=== PATIENT | female | born 1940 | race Caucasian/White ===

== ENCOUNTER 2019-11-27 21:51 | Observation (INO) | payer MEDICARE, SELFPAY ==
--- NOTE | ~2019-11-27 | CT_ITS ---
EXAMINATION: CT brain wo con DATE: 11/27/2019 23:21 INDICATION: Status post fall. Dementia. Headache. TECHNIQUE: Computed tomography (CT) of the head was performed without intravenous contrast. The dose- length product was 529.67 mGy-cm. COMPARISON: CT dated 11/15/2019 FINDINGS: Generalized atrophy. There is a right frontal scalp hematoma. There are scattered mild rory ventricular and subcortical white matter changes, most likely related to small vessel ischemic diseas e (microangiopathy). No acute intracranial hemorrhage, infarction, mass or mass effect. No depressed skull fractures. IMPRESSION: 1. No acute intracranial abnormality. 2: Chronic age-related findings. Reviewed, dictated and finalized at location A. T FURNACE AUXILIARIES SUPERVISOR
--- NOTE | ~2019-11-27 | CT_ITS ---
EXAMINATION: CT cervical spine wo con DATE: 11/27/2019 23:21 INDICATION: Status post fall. Neck pain. TECHNIQUE: Computed tomography (CT) of the cervical spine was performed without intravenous contrast. The dose-length product was 142 mGy-cm. Automated exposure control and iterative reconstruction tech nique were employed. COMPARISON: None FINDINGS: There is straightening of cervical lordosis. There is disc narrowing and endplate degenerat kaushik change at C4-5, C5-6 and C6-7. There is degenerative retrolisthesis at C4-5. Prominent dorsal ost eophytes at C4-5, C5-6 and C6-7. There is moderate multilevel uncinate and facet hypertrophy. Lung ap ices are normal. There is degenerative anterolisthesis at C7-T1. IMPRESSION: 1. No acute abnormality of the cervical spine. 2: Severe cervical spondylosis. Reviewed, dictated and finalized at location A. ETCHER
[2019-11-27 21:51] VITALS: BP 173/65; PULSE 80; RESP 14; TEMP 37.5; O2SAT 98
--- NOTE | 2019-11-27 21:52 | ED.FALL ---
HPI - Fall General Chief Complaint: Fall Stated Complaint: fall Time Seen by Provider: 11/27/19 21:52 Source: EMS Mode of arrival: EMS Limitations: dementia History of Present Illness HPI Narrative: The pt is a 78 y/o female who presents to the ED, via EMS from [facility], with c/o a fall that occurred today. Per EMS, staff contacted EMS after finding the pt on the floor around 20:40. The fall was not witnessed but the pt was alert and at her baseline mental status when found. Also per EMS, the pt was diagnosed with a UTI and a viral infection by her doctor this morning and has been weak because of it. The pt denies hip pain, back pain, and neck pain per EMS personnel. The pt has a PMHx of dementia. A complete HPI was limited due to the pt's dementia. MD complaint: fall Onset (ago): hour(s) (today) Fall witnessed: no Place fall occurred: other (assisted living facility) Loss of consciousness: unsure Associated symptoms (after fall): other (none) Related Data Allergies Allergy/AdvReac Type Severity Reaction Status Date / Time codeine Allergy Unknown Verified 11/27/19 22:32 Sulfa (Sulfonamide Allergy Unknown Verified 11/27/19 22:32 Antibiotics) Review of Systems Review of Systems: ROS unobtainable: other (A complete ROS was unobtainable due to the pt's dementia) Musculoskeletal: Musculoskeletal: Denies back pain, Denies neck pain and Denies other (hip pain) PMFSH Past Medical History Medical History Dementia Diabetes HTN (hypertension) Hypothyroid UTI (urinary tract infection) Surgical History Surgical History H/O: hysterectomy Hx of cholecystectomy Social History Social History Smoking status: Never smoker Exam Narrative: Exam Narrative: General appearance: Well-developed, well-nourished. Patient not in pain or distress, daughter at the bedside Skin: Normal color, right forehead hematoma and abrasion Head: Right forehead hematoma Eyes: Clear conjunctiva ENT: Oropharynx normal, ears normal, nose normal Neck: Supple, nontender, c-collar on Chest and respiratory: Airway patent, no respiratory distress, no accessory muscle use Heart: Regular rate/rhythm Abdomen: Soft, nontender, no organomegaly, quiet bowel sounds Vascular: Normal peripheral pulses, normal capillary refill. Musculoskeletal: Normal range of motion, nontender back Neurologic: Alert and oriented to her name only Course Course Emergency Course: Unchanged Vital Signs Vital signs: Vital Signs Temperature 37.5 C 11/27/19 21:51 Pulse Rate 80 11/27/19 21:51 Respiratory Rate 14 11/27/19 21:51 Blood Pressure 173/65 H 11/27/19 21:51 Pulse Oximetry 98 11/27/19 21:51 Temperature 37.5 C 11/27/19 21:51 Pulse Rate 87 11/27/19 22:19 Respiratory Rate 14 11/27/19 21:51 Blood Pressure 171/70 H 11/27/19 22:19 Pulse Oximetry 98 11/27/19 21:51 MDM - Fall MDM Narrative Medical decision making narrative: Unwitnessed fall, patient have history of dementia, per patient daughter patient looks exactly the same as this morning. Patient was seen by her family physician early this morning because of lethargy and not feeling well for few days, work-up showed a diagnosis of urinary tract infection and a viral infection. Patient probably fell next to her bed because of the weakness. Physical exam showed no deformity or any pain of the extremities. Just right forehead hematoma. Patient had a fall 2 weeks ago and was unwitnessed and was discharged home at that time. Labs
--- NOTE | 2019-11-27 21:59 | ECG_ITS ---
Measurements Intervals [place] Rate: 76 P: 59 ME: 159 QRS: 33 QRSD: 87 T: 56 QT: 386 QTc: 436 Interpretive Statements SINUS RHYTHM VENTRICULAR PREMATURE COMPLEX BORDERLINE ECG Electronically Signed On 11-28-2019 6:25:20 MOTOR VEHICLE TECHNICIAN by Chuck Romo D.O.
[2019-11-27 22:06] VITALS: BP 165/81; PULSE 75
[2019-11-27 22:08] VITALS: BP 177/66; PULSE 83
[2019-11-27 22:19] VITALS: BP 171/70; PULSE 87
[2019-11-27] MEDS: ONDANSETRON INJ 4 MG/2 ML VIAL IV PUSH (22:26)
[2019-11-27 22:29] LABS: Alveolar/Arterial O2 Gradient 25.4 mmHg; Base Excess ABG 2.8 mEq/l (+/-2.0); Fractional Inspired Oxygen 21 %; HCO3 ABG 26.7 mEq/l (22.0-26.0); Oxygen Content ABG 17.3 %vol (16.0-22.0); Oxygen Saturation ABG 96.2 % (95.0-100.0); Oxyhemoglobin 95.1 % THb (90.0-100.0); PCO2 ABG 38.6 mmHg (35.0-45.0); PO2 ABG 78.1 mmHg (80.0-100.0); PO2 FiO2 Ratio Arterial Blood 3.72 %; Total Hemoglobin 12.9 g/dL (12.0-18.0); pH ABG 7.458 (7.350-7.450)
[2019-11-27 22:30] LABS: Device ROOM AIR; Modified Allen's Test Unable to perform; Site Drawn RIGHT RADIAL
[2019-11-27 22:47] LABS: Basophils Percent Auto 0.7 % (0.2-1.2); Eosinophils Percent Auto 0.7 % (0-4.4); Hematocrit 38.3 % (37.0-47.0); Hemoglobin 12.3 g/dL (12.0-15.0); Immature Granulocyte Absolute 0.02 K/mm3 (0.00-0.031); Immature Granulocyte Percent A 0.5 % (0-0.5); Lymphocytes Absolute Auto 0.74 K/mm3 (0.9-3.2); Lymphocytes Percent Auto 17.8 % (18.3-44.2); Mean Corpuscular HGB Conc 32.1 g/dl (32-36); Mean Corpuscular Hemoglobin 28.9 pg (26-34); Mean Corpuscular Volume 89.9 fl (80-100); Mean Platelet Volume 11.3 fl (7.4-10.4); Monocytes Absolute Auto 0.9 K/mm3 (0.1-0.6); Monocytes Percent Auto 20.7 % (2.6-8.5); Neutrophils Absolute Auto 2.5 K/mm3 (1.3-6.7); Neutrophils Percent Auto 59.6 % (45.5-73.1); Platelet Count Result 130 k/mm3 (150-375); Red Blood Count 4.26 M/mm3 (4.2-5.4); Red Cell Distribution Width 13.3 % (11.5-14.5); White Blood Count 4.2 K/mm3 (4.5-10.0)
[2019-11-27 22:53] VITALS: BP 161/73; PULSE 76; RESP 13; O2SAT 98
[2019-11-27 23:00] LABS: Alanine Aminotransferase 51 U/L (4-35); Albumin Level 4.3 g/dL (3.5-5.1); Alkaline Phosphatase 82 U/L (38-126); Aspartate Amino Transferase 59 U/L (14-36); Bilirubin,Total 0.3 mg/dL (0.2-1.3); Blood Urea Nitrogen 29 mg/dL (7-17); Calcium 9.5 mg/dL (8.4-10.2); Carbon Dioxide 26 mmol/L (22-30); Chloride 100 mmol/L (98-107); Estimated Glomerular Filt Rate 24; Glucose 90 mg/dL (65-105); Potassium 3.9 mmol/L (3.4-5.0); Sodium 137 mmol/L (137-145)
--- NOTE | 2019-11-27 23:07 | PC.NURSE ---
Patient taken to CT.
[2019-11-27 23:12] LABS: NT Pro B Type Natriuretic Pept 398 PG/ML (5-100); Troponin I < 0.012 ng/mL (0.000-0.034)
[2019-11-27 23:22] LABS: Add Urine Microscopic? YES; Appearance Urine Clear (Clear); Bilirubin Urine Negative (Negative); Blood Urine Negative (Negative); Color Urine Straw (Yellow); Glucose Urine UA Negative (Negative); Ketones Urine Negative (Negative); Leukocyte Esterase Ur Negative LEU/UL (Negative); Mucus Urine Rare /lpf; Nitrate Urine Negative (Negative); Protein Urine 1+ mg/dL (Negative); RBC Urine 0-2 /hpf (0-2); Specific Grav Ur 1.013 (1.001-1.035); Urobilinogen Urine Negative mg/dL (<2.0); WBC Urine 0-3 /hpf
[2019-11-27 23:57] VITALS: BP 166/62; PULSE 74; RESP 16; O2SAT 95
[2019-11-28] VITALS (9 sets, daily range): BP systolic 132–170; BP diastolic 57–66; PULSE 59–79; RESP 13–18; TEMP 36.4–37.1; O2SAT 97; BMI 23.6
[2019-11-28] MEDS: SODIUM CHLORIDE 0.9% IV 1,000 ML 100 ML IV CONT (00:09)
[2019-11-28 00:19] LABS: Prothrombin Time 12.8 Seconds (11.1-14.7)
--- NOTE | 2019-11-28 01:30 | ADMGEN ---
This patient, Yuni Snell, was admitted to [facility] Surg Room 333-01. Patient/family oriented to hospital policies and general routines including ID bracelet, bed and alarms, visiting hours, pain management, procedures, bathroom and other care routines, personal items, smoking policy, room service/diet, and visiting hours. Valuables list has been completed. Information on how to activate the Rapid Response Team has been discussed. Patient/Family are encouraged to report perceived risks to care and to ask questions if they do not understand what they are told or what they should do.
--- NOTE | 2019-11-28 07:09 | PM.IMHP ---
H&P: HPI History of Present Illness Chief complaint: Unwitnessed fall Narrative: Date and time of patient contact: 11/28/2019 at 4:00 a.m. Yuni Snell is a 79 year old female with a past medical history of dementia, osteoporosis, hypothyroidism, and type 2 diabetes who presented to the ER from [facility] after a fall. The patient was found on the floor by staff. The patient denies having any pain. When I ask her about a black eye she is confused and does not realize that she has hit her head. When I ask her if she is having any pain she denies pain. At times the patient giggles inappropriately during exam. The patient is able to the follow simple commands but when I ask her to stick out her tongue so and say ahh she sticks out her tongue in a joking matter and laughs. She is incontinent of urine is wearing a depend. Review of Systems Review of Systems: ROS unobtainable: unobtainable due to mental condition (Dementia only alert and oriented x1) [facility] Past Medical History Medical History (Updated 11/28/19 @ 07:26 by Marlyn Bah DO) CKD (chronic kidney disease) Dementia Diabetes HTN (hypertension) Hypothyroid UTI (urinary tract infection) Surgical History Surgical History H/O: hysterectomy Hx of cholecystectomy Family History Family History (Updated 11/28/19 @ 07:26 by Marlyn Bah DO) Other Unknown family medical history Social History Social History (Updated 11/28/19 @ 07:28 by Marlyn Bah DO) Social History: Code status: State IDPA form on chart states full code Primary care physician: Dr. Casper Feldman Smoking status: Unknown if ever smoked Alcohol intake: unknown Substance use: unknown Spiritual care concerns: No Agree to blood products: Yes Meds Home Medications and Allergies Home Medications Medication Instructions Recorded Confirmed Type amlodipine 5 mg PO DAILY 11/28/19 11/28/19 History cholecalciferol (vitamin D3) 5,000 unit PO DAILY 11/28/19 11/28/19 History glimepiride 2 mg PO DAILY 11/28/19 11/28/19 History levothyroxine 75 mcg PO DAILY 11/28/19 11/28/19 History omeprazole 20 mg PO DAILY 11/28/19 11/28/19 History sertraline 50 mg PO DAILY 11/28/19 11/28/19 History Allergies Allergy/AdvReac Type Severity Reaction Status Date / Time codeine Allergy Unknown Verified 11/27/19 22:32 Sulfa (Sulfonamide Allergy Unknown Verified 11/27/19 22:32 Antibiotics) Vital Signs Vital Signs - 24 hr 11/27/19 21:51 11/27/19 22:06 11/27/19 22:08 Temperature 99.5 F Pulse Rate 80 75 83 Respiratory Rate 14 Blood Pressure 173/65 H 165/81 H 177/66 H Pulse Oximetry 98 11/27/19 22:19 11/27/19 22:53 11/27/19 23:57 Temperature Pulse Rate 87 76 74 Respiratory Rate 13 16 Blood Pressure 171/70 H 161/73 H 166/62 H Pulse Oximetry 98 95 11/28/19 00:34 11/28/19 04:00 11/28/19 06:00 Temperature 98.1 F 98.7 F Pulse Rate 74 69 72 Respiratory Rate 13 18 Blood Pressure 132/57 L 138/57 L Pulse Oximetry 97 97 Exam Narrative: Exam Narrative: PHYSICAL EXAM: WEIGHT BMI General: Elderly, frail, thin body habitus HEENT: Mucous membranes are moist, periorbital hematoma, abrasion to the right forehead, nares patent, left pupil reactive, right pupil not examined is the patient is holding the eye closed Neck: No lymphadenopathy, supple Respiratory: Clear to auscultation bilaterally, no increased work of breathing Cardiovascular: Normal S1-S2, no murmur, 2+ bilateral radial pulses Gastrointestinal: Soft, nontender, nondistended, positive bowel sounds Skin: Abrasion to the right forehead, periorbital hematoma, non jaundice Extremities: Age-related arthritic changes noted, no acute bony or joint abnormalities Neurological: Alert and oriented x1, follow simple commands Psychiatric: Pleasantly confused, intermittently cooperative H&P: Results Labs L
[2019-11-28] MEDS: SERTRALINE HCL 50 MG TABLET PO (09:34)
[2019-11-28] MEDS: PANTOPRAZOLE 40 MG TABLET PO (09:34)
[2019-11-28] MEDS: AMLODIPINE BESYLATE 5 MG TABLET PO (09:34)
[2019-11-28 09:44] LABS: Glucose Point of Care 101 (65-105)
[2019-11-28 12:58] LABS: Glucose Point of Care 79 (65-105)
--- NOTE | 2019-11-28 14:45 | PM.IMPN ---
Progress Note: A&P Assessment and Plan (1) Dementia: Qualifiers: Dementia type: unspecified type Dementia behavioral disturbance: without behavioral disturbance Qualified Code(s): F03.90 - Unspecified dementia without behavioral disturbance Code(s): F03.90 - Unspecified dementia without behavioral disturbance Status: Acute Assessment and Plan: Family has met with [facility]. Plan for discharge back to [place] assisted [facility] with [facility] tomorrow. Stable, calm today. Seems to be at her baseline cognitively. (2) Unwitnessed fall: Code(s): R29.6 - Repeated falls Status: Acute Assessment and Plan: Patient resides at [facility] and sustained falls on 11/15/19 and 11/27/19. Sustained closed head injury to right forehead from her fall yesterday. CT brain with no acute intracranial abnormalities. Initiate fall precautions. (3) CHI (closed head injury): Qualifiers: Encounter type: subsequent encounter Qualified Code(s): S09.90XD - Unspecified injury of head, subsequent encounter Code(s): S09.90XA - Unspecified injury of head, initial encounter Status: Acute Assessment and Plan: See above. (4) Diabetes: Qualifiers: Diabetes mellitus type: type 2 Diabetes mellitus financial institution manager insulin use: without half-way use Diabetes mellitus complication status: without complication Qualified Code(s): E11.9 - Type 2 diabetes mellitus without complications Code(s): E11.9 - Type 2 diabetes mellitus without complications Status: Acute Assessment and Plan: Her home glimepiride is held. Blood sugars have been stable today without it. Monitor with Accu-Cheks and adjust treatment if needed. Consider stopping the glimepiride at discharge. (5) HTN (hypertension): Qualifiers: Hypertension type: essential hypertension Qualified Code(s): I10 - Essential (primary) hypertension Code(s): I10 - Essential (primary) hypertension Status: Acute Assessment and Plan: Elevated on arrival but improved after resuming her home Norvasc. Monitor. (6) Hypothyroid: Qualifiers: Hypothyroidism type: unspecified Qualified Code(s): E03.9 - Hypothyroidism, unspecified Code(s): E03.9 - Hypothyroidism, unspecified Status: Acute Assessment and Plan: Continue home levothyroxine. (7) CKD (chronic kidney disease): Qualifiers: Chronic kidney disease stage: unspecified stage Qualified Code(s): N18.9 - Chronic kidney disease, unspecified Code(s): N18.9 - Chronic kidney disease, unspecified Status: Acute Assessment and Plan: Cr 2.0 today. Unsure of her baseline. (8) DVT prophylaxis: Code(s): Z29.9 - Encounter for prophylactic measures, unspecified Status: Acute Assessment and Plan: SCDs. Subjective Date/time seen: 11/28/19 1000 Interval history: Ms. Snell is a 79yo F with dementia admitted after an unwitnessed fall at assisted living. She is calm and mostly cooperative this morning. She denies being in any pain. She is hungry and would like to eat breakfast. Complete review of systems is limited due to her dementia. Exam Narrative: Exam Narrative: General: Frail elderly female resting supine in bed in no acute distress. HEENT: Normocephalic, EOMI, oral mucosa moist. Abrasion noted to right forehead is not bleeding. Right periorbital hematoma. Cardiovascular: Rate and rhythm regular. Respiratory: Lungs clear to auscultation all malloy. Respirations even and nonlabored. Tolerating room air. Abdomen: Soft, non-tender, non-distended, bowel sounds present. Extremities: 2+ bilateral radial and pedal
[2019-11-28 17:56] LABS: Glucose Point of Care 101 (65-105)
[2019-11-28 22:17] LABS: Glucose Point of Care 160 (65-105)
[2019-11-29] VITALS: PULSE 66
[2019-11-29 04:00] VITALS: PULSE 89
[2019-11-29] MEDS: LEVOTHYROXINE SODIUM 75 MCG TABLET PO (05:57)
[2019-11-29 06:00] VITALS: BP 157/52; PULSE 72; RESP 18; TEMP 36.8; O2SAT 99
--- NOTE | 2019-11-29 06:00 | ECG_ITS ---
Measurements Intervals [place] Rate: 66 P: 76 RI: 164 QRS: 38 QRSD: 72 T: 48 QT: 401 QTc: 423 Interpretive Statements SINUS RHYTHM BASELINE ARTIFACT- I, II, AVR, V4-V6 NORMAL ECG Electronically Signed On 11-29-2019 15:52:04 FIBER OPTIC ASSEMBLY WORKER by Chuck Romo D.O.
[2019-11-29 08:00] VITALS: PULSE 64
[2019-11-29 08:08] LABS: Blood Urea Nitrogen 26 mg/dL (7-17); Calcium 9.2 mg/dL (8.4-10.2); Carbon Dioxide 27 mmol/L (22-30); Chloride 102 mmol/L (98-107); Estimated Glomerular Filt Rate 27; Glucose 112 mg/dL (65-105); Sodium 138 mmol/L (137-145)
[2019-11-29] MEDS: AMLODIPINE BESYLATE 5 MG TABLET PO (08:45)
[2019-11-29] MEDS: PANTOPRAZOLE 40 MG TABLET PO (08:45)
[2019-11-29] MEDS: SERTRALINE HCL 50 MG TABLET PO (08:46)
[2019-11-29 09:16] LABS: Glucose Point of Care 100 (65-105)
[2019-11-29 13:16] LABS: Glucose Point of Care 128 (65-105)
--- NOTE | 2019-11-29 19:53 | PM.DS ---
DS: Diagnosis Admitting Diagnosis Admitting Diagnosis: Repeated falls Discharge Diagnosis (1) Dementia: Qualifiers: Dementia type: unspecified type Dementia behavioral disturbance: without behavioral disturbance Qualified Code(s): F03.90 - Unspecified dementia without behavioral disturbance Code(s): F03.90 - Unspecified dementia without behavioral disturbance Status: Acute Assessment and Plan: Date of Service 11/29/19 Heavenly Donato PA-C ; Hospitalist Ms. Snell is a 79yo F with dementia, non insulin dependent type 2 diabetes mellitus, hypertension, hypothyroidism, and chronic kidney disease who presented to the ED from [facility] for evaluation of a closed head injury after a fall. She was noted to have fallen just 2 weeks prior to this admission as well. CT brain showed no acute intracranial abnormalities. CT C spine showed severe cervical spondylosis without acute findings. She has an abrasion to right forehead and periorbital hematoma on the right. She remained at her baseline cognitively, which is alert and oriented x 1 to 2, usually disoriented to place and time. Her blood pressures were elevated on arrival, but improved after resuming her home norvasc. Her home glimepiride was held and her blood sugars hovered in the 70s-low 100s without her glimepiride. Glimepiride held at discharge. Her family opted to meet with [facility] hospice. She was hemodynamically stable for discharge 11/29/19 back to [facility] with [facility]. (2) Unwitnessed fall: Code(s): R29.6 - Repeated falls Status: Acute Assessment and Plan: Patient resides at [facility] and sustained falls on 11/15/19 and 11/27/19. Sustained closed head injury to right forehead from her fall yesterday. CT brain with no acute intracranial abnormalities. Initiate fall precautions. (3) CHI (closed head injury): Qualifiers: Encounter type: subsequent encounter Qualified Code(s): S09.90XD - Unspecified injury of head, subsequent encounter Code(s): S09.90XA - Unspecified injury of head, initial encounter Status: Acute Assessment and Plan: See above. (4) Diabetes: Qualifiers: Diabetes mellitus type: type 2 Diabetes mellitus half-way insulin use: without half-way use Diabetes mellitus complication status: without complication Qualified Code(s): E11.9 - Type 2 diabetes mellitus without complications Code(s): E11.9 - Type 2 diabetes mellitus without complications Status: Acute Assessment and Plan: Her home glimepiride is held. Blood sugars have been stable without it. Glimepiride held at discharge. (5) HTN (hypertension): Qualifiers: Hypertension type: essential hypertension Qualified Code(s): I10 - Essential (primary) hypertension Code(s): I10 - Essential (primary) hypertension Status: Acute Assessment and Plan: Continue home norvasc. (6) Hypothyroid: Qualifiers: Hypothyroidism type: unspecified Qualified Code(s): E03.9 - Hypothyroidism, unspecified Code(s): E03.9 - Hypothyroidism, unspecified Status: Acute Assessment and Plan: Continue home levothyroxine. (7) CKD (chronic kidney disease): Qualifiers: Chronic kidney disease stage: unspecified stage Qualified Code(s): N18.9 - Chronic kidney disease, unspecified Code(s): N18.9 - Chronic kidney disease, unspecified Status: Acute Assessment and Plan: Cr 1.8 day of discharge. Unsure of her baseline. (8) DVT prophylaxis: Code(s): Z29.9 - Encounter for prophylactic measures, unspecified Status: Acute Assessment and Plan: SCDs. DS: S
== END 2019-11-29 14:40 | disposition hospice, home (50) ==
LOC: ANHED 23:53 → ANH3MEDSUR 11-28 00:17
PROVIDERS: Physician Assistant; Admitting Provider Internal Medicine; Emergency Provider Emergency Medicine; PCP Family Medicine; Visit Provider Family Medicine
DX: S00.11XA Contusion of right eyelid and periocular area, initial encounter (principal); S00.81XA Abrasion of other part of head, initial encounter; W19.XXXA Unspecified fall, initial encounter; R29.6 Repeated falls; F03.90 Unspecified dementia, unspecified severity, without behavioral disturbance, psychotic disturbance, mood disturbance, and anxiety; E11.22 Type 2 diabetes mellitus with diabetic chronic kidney disease; I12.9 Hypertensive chronic kidney disease with stage 1 through stage 4 chronic kidney disease, or unspecified chronic kidney disease; N18.9 Chronic kidney disease, unspecified; E03.9 Hypothyroidism, unspecified; M81.0 Age-related osteoporosis without current pathological fracture; R32 Unspecified urinary incontinence; Z79.899 Other long term (current) drug therapy
CPT/HCPCS: 36415; 36600; 51701; 70450; 72125; 80048; 80053; 81001; 82805; 83880; 84484; 85025; 85610; 85730; 87081; 93005; 96374; 99285; A9270; G0378; J2405; J7030

== ENCOUNTER 2019-12-06 09:41 | Emergency (ER) | payer MEDICARE, SELFPAY ==
--- NOTE | ~2019-12-06 | XR_ITS ---
EXAMINATION: XR pelvis 1-2V DATE: 12/06/2019 10:05 INDICATION: Pelvic pain. Fall. TECHNIQUE: An anteroposterior view of the pelvis was obtained. COMPARISON: None. FINDINGS: Bone alignment is normal. No fracture. There is mild osteoarthritis of the hips. There is m oderate lumbar spondylosis. IMPRESSION: 1. Mild osteoarthritis of the hips. Reviewed, dictated and finalized at location A. TICS SOFTWARE ENGINEER
--- NOTE | ~2019-12-06 | XR_ITS ---
EXAMINATION: XR chest 1V EXAM DATE: 12/06/2019 11:53 INDICATION: Fall. TECHNIQUE: Portable AP frontal chest x-ray was obtained. Comparison is made to prior examination from 12/08/2018. FINDINGS: The lungs are clear. There are no pleural effusions. There is aortic arterial sclerosis. There are bony degenerative changes. There are cholecystectomy clips. There is no pneumothorax susp ected. The bones and soft tissues are unremarkable. IMPRESSION: No acute cardiopulmonary findings. Reviewed, dictated and finalized at location A. APEUTIC CONSULTANT
--- NOTE | ~2019-12-06 | CT_ITS ---
EXAMINATION: CT brain wo con DATE: 12/06/2019 09:57 INDICATION: Head injury. Altered mental status. TECHNIQUE: Computed tomography (CT) of the head was performed without intravenous contrast. The mA wa s adjusted according to patient size. Iterative reconstruction technique was employed. The dose-lengt h product was 529.67 mGy-cm. COMPARISON: Head CT 11/27/2019 FINDINGS: There are scattered areas of low attenuation in the cerebral white matter, which is within normal limits for the patient's age. There is no intracranial hemorrhage, acute infarction, or abnorm al intracranial mass lesion. The ventricles are normal in size. The paranasal sinuses are clear. 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 The left external auditory canal is occluded, likely cerumen. The re is right frontal scalp soft tissue swelling. IMPRESSION: 1. Normal aging brain. Reviewed, dictated and finalized at location A. DRILLER IMPRESSION: 1. Normal aging brain.
--- NOTE | ~2019-12-06 | CT_ITS ---
EXAMINATION: CT facial & cervical spine wo EXAM DATE: 12/06/2019 09:58 INDICATION: Fall, head injury. Nose laceration. TECHNIQUE: Spiral CT of the facial bones was acquired in the axial plane. Coronal reformatted images were also reviewed. Spiral CT of the cervical spine was performed without contrast. Axial images we re reviewed. Coronal and sagittal reformatted images were also reviewed. The dose-length product (DL P) for this examination was 177.81 mGy-cm. The exposure was tailored according to patient size, and iterative reconstruction (ASIR) was used as additional dose reduction technique. Correlation is made to 11/27/2019. FINDINGS: FACIAL CT: There are no displaced nasal bone fractures. The mandible, sinuses and orbits are intact. The orbits, globes and extraocular muscles are unremarkable. Mild left maxillary sinus mucoperio steal thickening. Right frontal scalp contusion. CERVICAL CT: There is no evidence of acute cervical fracture. The odontoid process is intact. Pre-d ens space is normal. Prevertebral soft tissue is normal. There are no soft tissue abnormalities augusto ntified. There is no disc space widening or traumatic vertebral body subluxation suspected. Advance d cervical spondylosis. A detailed level by level evaluation of spondylosis can be added as addendum if requested. IMPRESSION: 1. No acute facial or cervical fracture. 2. Right frontal scalp contusion. 3. Advanced cervical spondylosis. Reviewed, dictated and finalized at location A. [facility]ER
--- NOTE | 2019-12-06 09:45 | ED.FALL ---
HPI - Fall General Chief Complaint: Fall <Joselo Gerber DO - Last Filed: 12/06/19 12:13> Stated Complaint: FALL/AMS <Joselo Gerber DO - Last Filed: 12/06/19 12:13> Time Seen by Provider: 12/06/19 09:42 <Joselo Gerber DO - Last Filed: 12/06/19 12:13> Source: EMS and RN notes reviewed <Joselo Gerber DO - Last Filed: 12/06/19 12:13> Mode of arrival: EMS <Joselo Gerber DO - Last Filed: 12/06/19 12:13> Limitations: clinical condition <Joselo Gerber DO - Last Filed: 12/06/19 12:13> History of Present Illness HPI Narrative: Pt is a 79 y/o female who presents to the ED, via EMS, from [place], secondary to a fall. Pt was found by staff on the floor with a laceration to her lt ear. Per nurse she has a H/o a stroke and has aphasia but she can normally speak. Per EMS, she was non-verbal with them. Pt is a DNR. A complete HPI is limited d/t clinical condition. <Joselo Gerber DO - Last Filed: 12/06/19 12:13> MD complaint: fall <Joselo Gerber DO - Last Filed: 12/06/19 12:13> Onset (ago): unknown <Joselo Gerber DO - Last Filed: 12/06/19 12:13> Fall witnessed: no <Joselo Gerber DO - Last Filed: 12/06/19 12:13> Place fall occurred: long term/SNF <Joselo Gerber DO - Last Filed: 12/06/19 12:13> Prolonged down time: unclear <Joselo Gerber DO - Last Filed: 12/06/19 12:13> Location of injury: other (lt ear) <Joselo Gerber DO - Last Filed: 12/06/19 12:13> Associated symptoms (after fall): other (unknown) <Joselo Gerber DO - Last Filed: 12/06/19 12:13> Related Data Home Medications: Home Medications Medication Instructions Recorded Confirmed amlodipine 5 mg PO DAILY 11/28/19 11/28/19 cholecalciferol (vitamin D3) 5,000 unit PO DAILY 11/28/19 11/28/19 levothyroxine 75 mcg PO DAILY 11/28/19 11/28/19 omeprazole 20 mg PO DAILY 11/28/19 11/28/19 sertraline 50 mg PO DAILY 11/28/19 11/28/19 <Joselo Gerber DO - Last Filed: 12/06/19 12:13> Allergies/Adverse Reactions: Allergies Allergy/AdvReac Type Severity Reaction Status Date / Time codeine Allergy Unknown Verified 11/27/19 22:32 Sulfa (Sulfonamide Allergy Unknown Verified 11/27/19 22:32 Antibiotics) <Joselo Gerber DO - Last Filed: 12/06/19 12:13> Review of Systems Review of Systems: ROS unobtainable: unobtainable due to mental condition <Joselo Gerber DO - Last Filed: 12/06/19 12:13> Integumentary/Breasts: Skin/Breast: Reports other (laceration to lt ear) <Joselo Gerber DO - Last Filed: 12/06/19 12:13> [facility] Past Medical History Medical History: Medical History (Updated 12/06/19 @ 12:11 by Joselo Gerber DO) CKD (chronic kidney disease) CVA (cerebral vascular accident) Dementia Diabetes HTN (hypertension) Hypothyroid UTI (urinary tract infection) <Joselo Gerber DO - Last Filed: 12/06/19 12:13> Surgical History Surgical History: Surgical History H/O: hysterectomy Hx of cholecystectomy <Joselo Gerber DO - Last Filed: 12/06/19 12:13> Family History Family History: Family History (Updated 11/28/19 @ 07:26 by Marlyn Bah DO) Other Unknown family medical history <Joselo Gerber DO - Last Filed: 12/06/19 12:13> Social History Social History: Social History (Reviewed 12/06/19 @ 10:23 by Tru Overton Social History: Code status: State IDPA form on chart states full code Primary care physician: Dr. Casper Feldman Smoking status: Unknown if ever smoked Alcohol intake: unknown Substance use: unknown Spiritual care concerns: No Agree to blood products: Yes <Joselo Gerber, - Last Filed: 12/06/19 12:13> Exam Narrative: Exam Narrative: APPEARANCE: No acute distress, nontoxic, resting in bed EYES: PERRL HEENT: Normocephalic, areas of ecchymosis over
[2019-12-06 09:53] VITALS: PULSE 98; RESP 16; O2SAT 99
[2019-12-06 10:15] VITALS: BP 185/61; PULSE 76; RESP 18; O2SAT 99
[2019-12-06 10:29] LABS: Basophils Percent Auto 0.4 % (0.2-1.2); Eosinophils Absolute Auto 0.2 K/mm3 (0-0.3); Eosinophils Percent Auto 2.4 % (0-4.4); Hemoglobin 11.7 g/dL (12.0-15.0); Immature Granulocyte Absolute 0.06 K/mm3 (0.00-0.031); Immature Granulocyte Percent A 0.8 % (0-0.5); Immature Platelet Fraction Pct 7.9 % (0.9-11.2); Lymphocytes Absolute Auto 1.16 K/mm3 (0.9-3.2); Lymphocytes Percent Auto 16.3 % (18.3-44.2); Mean Corpuscular HGB Conc 31.6 g/dl (32-36); Mean Corpuscular Hemoglobin 28.3 pg (26-34); Mean Corpuscular Volume 89.6 fl (80-100); Mean Platelet Volume 11.6 fl (7.4-10.4); Monocytes Absolute Auto 0.6 K/mm3 (0.1-0.6); Monocytes Percent Auto 7.7 % (2.6-8.5); Neutrophils Absolute Auto 5.2 K/mm3 (1.3-6.7); Neutrophils Percent Auto 72.4 % (45.5-73.1); Platelet Count Result 106 k/mm3 (150-375); Red Blood Count 4.13 M/mm3 (4.2-5.4); Red Cell Distribution Width 12.6 % (11.5-14.5); White Blood Count 7.1 K/mm3 (4.5-10.0)
[2019-12-06 10:39] LABS: Partial Thromboplastin Time 25.5 SECONDS (22.3-36.8); Prothrombin Time 12.7 Seconds (11.1-14.7)
[2019-12-06 10:45] LABS: Alanine Aminotransferase 63 U/L (4-35); Albumin Level 4.2 g/dL (3.5-5.1); Alkaline Phosphatase 118 U/L (38-126); Aspartate Amino Transferase 92 U/L (14-36); Bilirubin,Total 0.5 mg/dL (0.2-1.3); Blood Urea Nitrogen 30 mg/dL (7-17); Calcium 9.5 mg/dL (8.4-10.2); Carbon Dioxide 22 mmol/L (22-30); Chloride 102 mmol/L (98-107); Creatine Kinase 81 U/L (30-135); Estimated CRCL calculation 19 ml/min; Estimated Glomerular Filt Rate 24; Glucose 205 mg/dL (65-105); Potassium 4.6 mmol/L (3.4-5.0); Sodium 141 mmol/L (137-145)
[2019-12-06] MEDS: LIDO 1%/EPINEPHRINE 1:100,000 20 ML VIAL INFILTRATE (10:46)
[2019-12-06 11:17] VITALS: BP 132/63; PULSE 79; RESP 20; O2SAT 100
[2019-12-06 12:40] VITALS: BP 123/78; PULSE 87; RESP 16; O2SAT 100
--- NOTE | 2019-12-06 12:45 | PC.NURSE ---
18 ga PIV to left AC discontinued. Unable to chart on worklist.
== END 2019-12-06 12:45 | disposition hospice, home (50) ==
PROVIDERS: Emergency Provider Emergency Medicine; PCP Family Medicine
DX: S01.312A Laceration without foreign body of left ear, initial encounter (principal); S00.03XA Contusion of scalp, initial encounter; E11.22 Type 2 diabetes mellitus with diabetic chronic kidney disease; I12.9 Hypertensive chronic kidney disease with stage 1 through stage 4 chronic kidney disease, or unspecified chronic kidney disease; N18.9 Chronic kidney disease, unspecified; F03.90 Unspecified dementia, unspecified severity, without behavioral disturbance, psychotic disturbance, mood disturbance, and anxiety; E03.9 Hypothyroidism, unspecified; Z87.440 Personal history of urinary (tract) infections; I69.920 Aphasia following unspecified cerebrovascular disease; Z66 Do not resuscitate; M47.812 Spondylosis without myelopathy or radiculopathy, cervical region; W19.XXXA Unspecified fall, initial encounter
CPT/HCPCS: 12011; 36415; 70450; 70486; 71045; 72125; 72170; 80053; 82550; 85025; 85055; 85610; 85730; 96374; 99284; J0131